=== PATIENT | male | born 1990 | race Caucasian/White ===

== ENCOUNTER 2016-10-24 20:36 | Emergency (ER) | payer MEDICAID, MEDICARE ==
[~2016-10-24] VITALS: Ht 182.9 cm; Wt 56.8 kg
[2016-10-24 20:38] VITALS: BP 131/88; PULSE 86; RESP 16; O2SAT 97
--- NOTE | 2016-10-24 21:01 | ED.REPORT ---
HPI-Dental/Mouth Prob Date of Service Oct 24, 2016 ED Provider: MD Erik This is a 26 year old male presenting to the emergency department complaining of R mandibular molar pain of unknown onset that worsened today. Reports worsening discomfort. Ibuprofen has provided mild pain relief. Pt is planning on seeing a dentist next week.. Reports mild R jaw swelling. Denies fever, chills, nausea, vomiting. Nursing Notes Stated Complaint: JAW PAIN Chief Complaint: Dental Nursing Notes Reviewed: Yes Allergies: Coded Allergies: lurasidone (Verified Allergy, Severe, muscle twitches , fever , "medical induced flu", 10/24/16) risperidone (Verified Adverse Reaction, Intermediate, excessive sleepiness , 10/24/16) Scheduled Penicillin V Potassium (Penicillin V Potassium) 500 Mg Tablet 500 MG PO QID General Time Seen by MD: 21:00 Chief Complaint Tooth pain Hx Obtained From: Patient Arrived By: Walk-in Onset Occurred: 5 - 8 hours ago Symptom Duration: Since onset Severity: Current: Moderate Pertinent Negative: Pt denies other symptoms Recent Healthcare: No recent doctor visit, No recent hospitalization Similar Sx Previous: No Past Medical History Past Medical History Anxiety Depression Reports: Mental illness Past Surgical History Denies Ambulatory Status Independent Review of Systems Constitutional: Denies: Chills, Fever Ears / Nose / Throat: Reports: Toothache, Denies: Sore throat, Throat pain Respiratory: Denies: Shortness of breath GI: Denies: Nausea, Vomiting Complete sys rev & neg: except as marked. Physical Exam Initial Vital Signs Vital Signs (First) Date Time Temp Pulse Resp B/P Pulse Ox O2 Delivery O2 Flow Rate FiO2 10/24/16 20:38 36.6 86 16 131/88 97 Room Air Initial VS: Reviewed General/Constitutional: Well-developed, Well-nourished Head / Eyes: Atraumatic, Normocephalic, PERRL Respiratory: Breath sounds normal, Clear to auscultation, No respiratory distress Cardiovascular: Regular rate & rhythm, Heart sounds normal, Intact distal pulses Abdomen / GI: Soft, Non-tender, No guarding, No rebound, No distention Extremities: Vascular intact, Neuro intact, No swelling, No tenderness Skin: Warm, Dry, No cyanosis Neurologic: Alert, Oriented, Nonfocal Psychiatric: Mood/affect normal, Behavior normal, Normal thought content ENT: Mucous membranes moist, Pharynx NL Soft sublingual and submental spaces. Severe plaque build up and gingivitis present. Tender on posterior R mandibular molar which is rotten to gum without abscess. Neck: Supple, No meningismus, Full range of motion, No adenopathy, No swelling , Non-tender, No masses Re-Eval/Medical Decision Med Decision/Clinical Course 26-year-old male with no past medical history here with dental pain. Differential diagnosis includes but is not limited to apical abscess versus gingivitis versus exposed nerve root versus carious teeth. Patient has soft sublingual and submental spaces, and does not have any evidence of Stefano's angina. He was given penicillin in the emergency department, and a prescription for same. He has already scheduled follow-up with a dentist. I have advised him to take ibuprofen 800 every 8 hours for pain, and to use clove oil as needed for pain. He is aware and amenable to discharge at this time. Counseled Regarding: Diagnosis, Need for follow-up, When/why to return to ED Discharge & Departure Primary Impression: Gingivitis Disposition: Home Discharge Condition All VS Reviewed: Yes Condition: Stable Patient Instructions: Gingivitis (ED) Additional Instructions: Take penicillin as prescribed and ibuprofen, 800 mg, every 6-8 hours as needed for dental pain control. You may also apply clove oil for pain relief. Follow-up with your dentist as soon as possible, call Wednesday to schedule an appointment. Return to the emergency department for any new or worsening symptoms Referrals: NOPCP (PCP) Scribe Attestation Portions of this note were transcribed by Kaylyn Anglin. I, Dr. Valencia personally performed the history, physical exam and medical decision-making; I reviewed and confirmed the accuracy of the information in the transcribed note. Signed by: enrique Saravia. 10/24/2016, 23:00. Janet Valencia MD Oct 24, 2016 21:00 KAYLYN ANGLIN Oct 24, 2016 21:03
[2016-10-24] MEDS ORDERED: PENI500T PO (21:29)
[2016-10-24 21:45] VITALS: PULSE 78; RESP 20; O2SAT 100
== END 2016-10-24 21:47 | disposition home or self-care (01) ==
LOC: SED 20:36
DX: K05.10 Chronic gingivitis, plaque induced (principal); K02.9 Dental caries, unspecified; Z88.8 Allergy status to other drugs, medicaments and biological substances